=== PATIENT | male | born 1980 | race Caucasian/White ===

== ENCOUNTER 2018-04-12 13:18 | Inpatient (IN) | payer MEDICAID ==
[~2018-04-12] VITALS: Ht 195.6 cm; Wt 74.8 kg
[2018-04-12 17:36] VITALS: BMI 19.6
[2018-04-12 18:43] LABS: ALBUMIN 1.7 g/dL (3.4-5.0); ALKALINE PHOSPHATASE 134 U/L (46-116); ALT (SGPT) 81 U/L (10-68); BILIRUBIN - TOTAL 0.57 mg/dL (0.2-1.3); CALC OSMOLALITY 258 mosm/kg (275-300); CALCIUM 7.4 mg/dL (8.5-10.1); CARBON DIOXIDE 21.2 mmol/L (21.0-32.0); CHLORIDE - SERUM 95 mmol/L (98-107); CREATININE - SERUM 0.9 mg/dL (0.6-1.3); GLUCOSE 91 mg/dL (74-106); POTASSIUM - SERUM 4.5 mmol/L (3.5-5.1); PROTEIN - SERUM 6.3 g/dL (6.4-8.2); SODIUM 130 mmol/L (136-145); UREA NITROGEN 7 mg/dL (7-18); eGFR NON AFRICAN AMERICAN > 90 mL/min (90-120)
[2018-04-12 19:49] LABS: BASOPHILS 0.2 % (0-2); EOSINOPHILS 0.1 % (0-7); HEMATOCRIT 25.4 % (42.0-54.0); HEMOGLOBIN 8.4 g/dL (13.5-17.5); IMMATURE GRANULOCYTES 0.4 % (0-5); LYMPHOCYTES 10.5 % (15-50); MCH 27.6 pg (26.0-34.0); MCHC 33.1 g/dL (31.0-37.0); MCV 83.6 fL (80.0-100.0); MEAN PLATELET VOLUME 9.7 fL (7.4-10.4); MONOCYTES 8.2 % (2-11); NEUTROPHILS 80.6 % (40-80); PLATELET COUNT 466 10x3/uL (130-400); RBC 3.04 10x6/uL (4.20-6.10); RDW 13.3 % (11.5-14.5); WBC 16.1 10x3/uL (4.8-10.8)
[2018-04-12 21:34] VITALS: BP 128/76
--- NOTE | 2018-04-12 21:35 | NUR ---
WATCHING TV QUIELTY. NO DISTRESS NOTED. TEMP 103. TYLENOL 650 MG GIVEN PER ORDERS. IV TO LEONEL INTACT WITHOUT REDNESS OR EDEMA NOTED. NO COMPLAINTS VOICED. CL IN REACH
--- NOTE | 2018-04-12 22:30 | NUR ---
TEMP 101.7. NO DISTRESS NOTED.
--- NOTE | 2018-04-13 00:25 | NUR ---
RESTING IN BED NO S/S OF DISTRESS, RESP. EVEN AND UNLABORED CALL LIGHT IN REACH.
[2018-04-13 01:05] VITALS: BP 110/63
[2018-04-13 04:52] LABS: BASOPHILS 0.1 % (0-2); EOSINOPHILS 0.1 % (0-7); HEMOGLOBIN 7.9 g/dL (13.5-17.5); IMMATURE GRANULOCYTES 0.5 % (0-5); LYMPHOCYTES 12.8 % (15-50); MCH 27.7 pg (26.0-34.0); MCHC 32.9 g/dL (31.0-37.0); MCV 84.2 fL (80.0-100.0); MEAN PLATELET VOLUME 9.9 fL (7.4-10.4); MONOCYTES 9.8 % (2-11); NEUTROPHILS 76.7 % (40-80); PLATELET COUNT 482 10x3/uL (130-400); RBC 2.85 10x6/uL (4.20-6.10); RDW 13.4 % (11.5-14.5)
[2018-04-13 04:56] VITALS: BP 125/74
[2018-04-13 05:04] LABS: CALC OSMOLALITY 257 mosm/kg (275-300); CALCIUM 7.2 mg/dL (8.5-10.1); CARBON DIOXIDE 22.6 mmol/L (21.0-32.0); CHLORIDE - SERUM 96 mmol/L (98-107); GLUCOSE 93 mg/dL (74-106); POTASSIUM - SERUM 4.2 mmol/L (3.5-5.1); SODIUM 129 mmol/L (136-145); UREA NITROGEN 9 mg/dL (7-18); eGFR NON AFRICAN AMERICAN 88 mL/min (90-120)
--- NOTE | 2018-04-13 05:47 | NUR ---
TYLENOL 650 MG GIVEN FOR TEMP 102. NO COMPLAITNS VOICED.
[2018-04-13 10:04] VITALS: BP 119/65
[2018-04-13 13:10] VITALS: BMI 19.5
[2018-04-13 14:49] VITALS: BP 135/78
[2018-04-13 16:12] LABS: % SATURATION 17 % (15-55); IRON 17 ug/dl (35-150); TOTAL IRON BIND CAPACITY 99 ug/dl (260-445); UNSAT IRON BIND CAPACITY 82 ug/dl (150-375)
[2018-04-13 17:36] VITALS: BP 129/69
--- NOTE | 2018-04-13 17:40 | NUR ---
TB TEST DONE ON LEFT FOREARM 1730. TO BE READ 04/15/18 1730 THROUGH 04/16/18 1730.
[2018-04-13 19:00] VITALS: BP 117/70
--- NOTE | 2018-04-13 19:30 | NUR ---
ATTEMPTED IV PLACEMENT TWO STICKS, UNSUCCESSFUL, ANOTHER NURSE ATTEMPTED TO PLACE IV, STUCK PT TWICE UNSUCCESSFULLY, WILL ATTEMPT LATER, DENIES NEEDS, A&O, CALL LIGHT IN REACH, BED LOWEST POSITION, WILL CONTINUE POC
--- NOTE | 2018-04-13 22:40 | NUR ---
22G TO RIGHT FOREARM PLACED ONE STICK, ABX STARTED AND IV FLUIDS ON
[2018-04-14] VITALS: BP 119/71
[2018-04-14 00:31] LABS: APPEARANCE CLEAR (CLEAR); BILIRUBIN NEGATIVE (NEGATIVE); COLOR YELLOW (YELLOW); GLUCOSE NEGATIVE (NEGATIVE); KETONE NEGATIVE (NEGATIVE); NITRITE NEGATIVE (NEGATIVE); PROTEIN NEGATIVE (NEGATIVE); SPECIFIC GRAVITY 1.015 (1.005-1.020); UROBILINOGEN NORMAL (NORMAL)
[2018-04-14 03:00] VITALS: BP 119/74
--- NOTE | 2018-04-14 04:09 | NUR ---
RECEIVED PAIN MED FROM NURSE. NO OTHER NEEDS. NO DISTRESS NOTED. AGREE WITH FIGHT MANAGER'S ASSESSMENT. CONTINUE PLAN OF CARE.
[2018-04-14 08:16] LABS: FOLATE (FOLIC ACID) - SERUM 6.2 ng/mL (>3.0)
--- NOTE | 2018-04-14 10:23 | NUR ---
SCD'S PLACED ON PATIENT. TURNED ON AND FUNCTIONING.
[2018-04-14 10:58] VITALS: BP 104/68; BP 123/69
[2018-04-14 11:42] LABS: BASOPHILS 0.1 % (0-2); EOSINOPHILS 0.1 % (0-7); HEMATOCRIT 21.8 % (42.0-54.0); IMMATURE GRANULOCYTES 0.5 % (0-5); LYMPHOCYTES 12.4 % (15-50); MCH 27.8 pg (26.0-34.0); MCV 84.2 fL (80.0-100.0); MEAN PLATELET VOLUME 9.7 fL (7.4-10.4); MONOCYTES 7.7 % (2-11); NEUTROPHILS 79.2 % (40-80); PLATELET COUNT 445 10x3/uL (130-400); RBC 2.59 10x6/uL (4.20-6.10); RDW 13.7 % (11.5-14.5); WBC 14.2 10x3/uL (4.8-10.8)
[2018-04-14 11:52] LABS: CALC OSMOLALITY 258 mosm/kg (275-300); CARBON DIOXIDE 22.4 mmol/L (21.0-32.0); CHLORIDE - SERUM 97 mmol/L (98-107); CREATININE - SERUM 0.9 mg/dL (0.6-1.3); GLUCOSE 123 mg/dL (74-106); POTASSIUM - SERUM 3.8 mmol/L (3.5-5.1); SODIUM 129 mmol/L (136-145); UREA NITROGEN 10 mg/dL (7-18); eGFR NON AFRICAN AMERICAN > 90 mL/min (90-120)
[2018-04-14 12:04] LABS: HEMOGLOBIN 7.2 g/dL (13.5-17.5)
[2018-04-14 14:18] VITALS: BP 105/61
--- NOTE | 2018-04-14 15:01 | NUR ---
RESTING QUIETLY IN BED. REPORTS PAIN MEDS ARE CAUSING HIM TO GO IN AND OUT. DENIES NEEDS. CONTINUE [facility] PLAN OF CARE.
--- NOTE | 2018-04-14 16:30 | NUR ---
A POS. BLOOD STARTED AFTER PRE-BLOOD VS TAKEN. VS 99.9 ORAL TEMP, 117 HR, 32 RESP, 118/71 BP, 93% ON 2.5 L NC. STAYING WITH PATIENT FOR FIRST 15 MINUTES AND RECORDING SECOND SET OF VS AT 15 MIN AFTER BEGINNING TRANSFUSION.
[2018-04-14 19:00] VITALS: BP 144/77
--- NOTE | 2018-04-14 20:00 | NUR ---
RECEIVED REPORT, ASSUMED CARE, A&O, DENIES NEEDS, TEMP 101.5, TYLENOL GIVEN, SCD MACHINE REPLACED, SCD'S ON, CALL LIGHT IN REACH, BED LOWEST POSITION, WILL CONTINUE POC
[2018-04-15] VITALS: BP 116/69
[2018-04-15 03:00] VITALS: BP 124/76
--- NOTE | 2018-04-15 03:17 | NUR ---
RESTING QUITELY IN BED NO APPARENT DISTRESS CALL LIGHT IN REACH
[2018-04-15 07:11] LABS: CALC OSMOLALITY 261 mosm/kg (275-300); CALCIUM 7.4 mg/dL (8.5-10.1); CHLORIDE - SERUM 98 mmol/L (98-107); CREATININE - SERUM 0.9 mg/dL (0.6-1.3); GLUCOSE 102 mg/dL (74-106); POTASSIUM - SERUM 3.9 mmol/L (3.5-5.1); SODIUM 131 mmol/L (136-145); UREA NITROGEN 9 mg/dL (7-18); eGFR NON AFRICAN AMERICAN > 90 mL/min (90-120)
[2018-04-15 07:31] LABS: LYMPHOCYTES 10.3 % (15-50); MCH 29.5 pg (26.0-34.0); MCHC 34.3 g/dL (31.0-37.0); MEAN PLATELET VOLUME 9.5 fL (7.4-10.4); NEUTROPHILS 83.9 % (40-80); PLATELET COUNT 481 10x3/uL (130-400); RBC 3.08 10x6/uL (4.20-6.10); RDW 14.7 % (11.5-14.5); WBC 14.9 10x3/uL (4.8-10.8)
[2018-04-15 07:33] LABS: HEMATOCRIT 26.5 % (42.0-54.0); HEMOGLOBIN 9.1 g/dL (13.5-17.5)
[2018-04-15 09:27] VITALS: BP 102/60
[2018-04-15 12:35] VITALS: BP 116/67
[2018-04-15 17:02] VITALS: BP 123/72
--- NOTE | 2018-04-15 17:43 | NUR ---
PATIENT'S TB SKIN TEST READ WITH NEGATIVE REACTION AT SITE OF LEFT FOREARM.
[2018-04-15 19:00] VITALS: BP 124/73
--- NOTE | 2018-04-15 19:30 | NUR ---
RECEIVED REPORT, ASSUMED CARE, A&O, CALL LIGHT IN REACH, BED LOWEST POSITION, IV RFA INFUSING, NO S/S OF DISTRESS NOTED, SCD'S ON, DENIES NEEDS, WILL CONTINUE POC
[2018-04-16] VITALS: BP 134/81
[2018-04-16 03:00] VITALS: BP 121/73
--- NOTE | 2018-04-16 04:25 | NUR ---
PT RESTING QUIETLY, EYES CLOSED. RESP EVEN. NO DISTRESS NOTED. AGREE WITH ART PREPARATOR'S ASSESSMENT. CONTINUE PLAN OF CARE.
[2018-04-16 05:15] LABS: BASOPHILS 0.1 % (0-2); EOSINOPHILS 0.1 % (0-7); HEMATOCRIT 23.2 % (42.0-54.0); HEMOGLOBIN 7.7 g/dL (13.5-17.5); IMMATURE GRANULOCYTES 0.5 % (0-5); LYMPHOCYTES 12.2 % (15-50); MCHC 33.2 g/dL (31.0-37.0); MCV 84.4 fL (80.0-100.0); MEAN PLATELET VOLUME 9.6 fL (7.4-10.4); MONOCYTES 8.4 % (2-11); NEUTROPHILS 78.7 % (40-80); PLATELET COUNT 466 10x3/uL (130-400); RBC 2.75 10x6/uL (4.20-6.10); RDW 14.1 % (11.5-14.5); WBC 14.2 10x3/uL (4.8-10.8)
[2018-04-16 05:40] LABS: ALBUMIN 1.3 g/dL (3.4-5.0); ALKALINE PHOSPHATASE 125 U/L (46-116); ALT (SGPT) 60 U/L (10-68); BILIRUBIN - DIRECT 0.11 mg/dL (0.00-0.30); BILIRUBIN - INDIRECT 0.14 mg/dL (0.00-1.00); BILIRUBIN - TOTAL 0.25 mg/dL (0.2-1.3); CALC OSMOLALITY 264 mosm/kg (275-300); CALCIUM 7.3 mg/dL (8.5-10.1); CARBON DIOXIDE 24.8 mmol/L (21.0-32.0); CHLORIDE - SERUM 100 mmol/L (98-107); CREATININE - SERUM 0.8 mg/dL (0.6-1.3); GLUCOSE 92 mg/dL (74-106); MAGNESIUM - SERUM 1.9 mg/dL (1.8-2.4); PHOSPHOROUS 3.1 mg/dL (2.5-4.9); POTASSIUM - SERUM 4.4 mmol/L (3.5-5.1); PROTEIN - SERUM 5.8 g/dL (6.4-8.2); SODIUM 133 mmol/L (136-145); UREA NITROGEN 9 mg/dL (7-18); eGFR NON AFRICAN AMERICAN > 90 mL/min (90-120)
[2018-04-16 08:21] VITALS: BP 119/72
[2018-04-16 12:20] VITALS: BP 112/74
--- NOTE | 2018-04-16 14:14 | MORECARE ---
CASE MANAGEMENT DISCHARGE SUMMARY PATIENT: DEMETRIUS GILLESPIE UNIT: [id number] ADM DATE: 04/12/18 AGE: 38 : 78 SEX: M ROOM/BED: D.2228 AUTHOR: BLU YBARRA PHYSICIAN: REFERRING PHYSICIAN: GOMEZ VIERA MD DATE OF SERVICE: 04/16/18 Discharge Plan Patient Name: DEMETRIUS GILLESPIE [facility] [facility] 1980 Planned Disposition: Home Anticipated Discharge Date: Discharge Date: Expected LOS: Initial Reviewer: [email or web address] Initial Review Date: 04/16/2018 Generated: 04/16/18 3:14 pm Patient Name: DEMETRIUS GILLESPIE Page [id number] at 1414 All edits/amendments must be made on the electronic document DICTATION DATE: 04/16/18 141 RETURNED CASE INSPECTOR: DELORIS 04/16/18 1414 RPT#: [id number] DC DATE: STATUS: ADM IN [facility] [address] [place] [address] END OF REPORT
--- NOTE | 2018-04-16 14:23 | MORECARE ---
CASE MANAGEMENT DISCHARGE SUMMARY PATIENT: DEMETRIUS GILLESIPE UNIT: [id number] ADM DATE: 04/12/18 AGE: 38 : 78 SEX: M ROOM/BED: D.2228 AUTHOR: TATE,DOC PHYSICIAN: REFERRING PHYSICIAN: GOMEZ VIERA MD DATE OF SERVICE: 04/16/18 Discharge Plan Patient Name: DEMETRIUS GILLESPIE Facility: [facility]:[place] : 1980 Planned Disposition: Home Anticipated Discharge Date: Discharge Date: Expected LOS: Initial Reviewer: [email or web address] Initial Review Date: 04/16/2018 Generated: 04/16/18 3:23 pm Comments DCP- Discharge Planning Updated by [email or web address]: Helen Bruce on 04/16/18 1:[address] Patient Name: DEMETRIUS GILLESPIE Admission Status: Urgent Accout number: [id number] Admission Date: 04-12-2018 : 1980 Admission Diagnosis: Attending: GOMEZ VIERA Current LOS: 4 Anticipated DC Date: Planned Disposition: Home Primary Insurance: MEDICAID [place] PENDING Discharge Planning Comments: CM met with patient to complete initial dc planning assessment. CM educated patient on the CM role and verbal consent given by patient to complete assessment. Patient lives alone. At discharge patient plans to return home and feels this is a safe discharge. Discussed possibility of home health and DME needs, declines need for medical equipment or home health at this time. I discussed getting a primary care doctor for follow up in [place] and informed him that he does show Medicaid pending and to follow up. CM will continue to follow and assist with discharge planning/needs. Folder Hand: Helen Bruce DCPIA - Discharge Planning Initial Assessment Updated by [email or web address]: Helen Bruce on 04/16/18 2:16 pm * Is the patient Alert and Oriented? Yes * How many steps to enter\exit or inside your home? 3/0 * PCP None * Pharmacy [facility] in [place] * Preadmission Environment Acute Care Facility * Facility Name [facility] in [place] * ADLs Independent * Equipment None * List name and contact numbers for known caregivers / representatives who currently or will assist patient after discharge: [place] Juan C - mother - [phone] * Verbal permission to speak to the caregivers and representatives has been obtained from the patient. Yes * Community resources currently utilized None * Additional services required to return to the preadmission environment? No * Can the patient safely return to the preadmission environment? Yes * Has this patient been hospitalized within the prior 30 days at any hospital? No Last DP export: 04/16/18 1:14 p Patient Name: DEMETRIUS GILLESPIE Page [id number] at 1423 All edits/amendments must be made on the electronic document DICTATION DATE: 04/16/181422 DELIVERY SUPERVISOR: DELORIS 04/16/18 142 RPT#: [id number] DC DATE: STATUS: ADM IN [facility] [address] [place] [address] END OF REPORT
[2018-04-16 16:00] VITALS: BP 119/63
--- NOTE | 2018-04-16 17:23 | NUR ---
SWIM INSTRUCTOR COMPLETE. NO SIGNS OF DISTRESS NOTED. CL IN REACH
[2018-04-16 20:00] VITALS: BP 114/64
--- NOTE | 2018-04-16 22:29 | NUR ---
THE PATIENT APPEARS COMFORTABLE WITH NO QUESTIONS OR CONCERNS AT THIS TIME. SCDS IN PLACE. PATIENT IS NPO.
[2018-04-17] VITALS: BP 111/72
[2018-04-17 05:00] VITALS: BP 118/68
[2018-04-17 05:14] LABS: HEPATITIS C ANTIBODY 0.2 S/CO RAT (0.0-0.9)
[2018-04-17 06:11] LABS: BASOPHILS 0.2 % (0-2); EOSINOPHILS 0.5 % (0-7); HEMATOCRIT 26.4 % (42.0-54.0); HEMOGLOBIN 8.5 g/dL (13.5-17.5); IMMATURE GRANULOCYTES 0.5 % (0-5); LYMPHOCYTES 12.2 % (15-50); MCH 27.8 pg (26.0-34.0); MCHC 32.2 g/dL (31.0-37.0); MCV 86.3 fL (80.0-100.0); MEAN PLATELET VOLUME 9.7 fL (7.4-10.4); MONOCYTES 10.5 % (2-11); NEUTROPHILS 76.1 % (40-80); PLATELET COUNT 557 10x3/uL (130-400); RBC 3.06 10x6/uL (4.20-6.10); RDW 14.6 % (11.5-14.5); WBC 15.2 10x3/uL (4.8-10.8)
[2018-04-17 06:28] LABS: CALC OSMOLALITY 266 mosm/kg (275-300); CARBON DIOXIDE 26.6 mmol/L (21.0-32.0); CHLORIDE - SERUM 100 mmol/L (98-107); CREATININE - SERUM 0.8 mg/dL (0.6-1.3); GLUCOSE 82 mg/dL (74-106); POTASSIUM - SERUM 4.3 mmol/L (3.5-5.1); SODIUM 135 mmol/L (136-145); UREA NITROGEN 8 mg/dL (7-18); eGFR NON AFRICAN AMERICAN > 90 mL/min (90-120)
[2018-04-17 08:27] VITALS: BP 116/60
[2018-04-17 11:20] LABS: OSMOLALITY - URINE 330 (())
[2018-04-17 12:04] VITALS: BP 109/70
--- NOTE | 2018-04-17 12:29 | NUR ---
NUTRITION F/U PT CURRENTLY NPO FOR PROCEDURE. WILL PROVIDE DIET WHEN RESUMED. MONITOR PT PROGRESS, PO INTAKE. RD FOLLOWING
--- NOTE | 2018-04-17 15:43 | NUR ---
PATIENT TAKEN BY WHEELCHAIR TO PRIVATE CAR, CAREGIVER TAKING PATIENT HOME
--- NOTE | 2018-04-17 15:45 | NUR ---
DISREGUARD PREVIOUS NOTE, WRONG PATIENT
--- NOTE | 2018-04-17 16:38 | NUR ---
1404 UNABLE TO SEDATE WITH MODERATED SEDATION. APOORVA HARTMAN WITH ANESTHESIA IN ROOM TO COMPLETE WITH TIVA.
[2018-04-17 20:00] VITALS: BP 132/79
[2018-04-18] VITALS (7 sets, daily range): BP systolic 114–133; BP diastolic 60–82; Ht 195.6 cm; Wt 74.8 kg
[2018-04-18 06:07] LABS: BASOPHILS 0.1 % (0-2); EOSINOPHILS 0.5 % (0-7); HEMATOCRIT 24.2 % (42.0-54.0); HEMOGLOBIN 7.8 g/dL (13.5-17.5); IMMATURE GRANULOCYTES 0.3 % (0-5); LYMPHOCYTES 9.8 % (15-50); MCH 27.8 pg (26.0-34.0); MCHC 32.2 g/dL (31.0-37.0); MCV 86.1 fL (80.0-100.0); MEAN PLATELET VOLUME 9.6 fL (7.4-10.4); MONOCYTES 10.7 % (2-11); NEUTROPHILS 78.6 % (40-80); PLATELET COUNT 544 10x3/uL (130-400); RBC 2.81 10x6/uL (4.20-6.10); RDW 14.8 % (11.5-14.5); WBC 14.4 10x3/uL (4.8-10.8)
[2018-04-18 06:27] LABS: CALC OSMOLALITY 262 mosm/kg (275-300); CALCIUM 7.7 mg/dL (8.5-10.1); CARBON DIOXIDE 25.1 mmol/L (21.0-32.0); CHLORIDE - SERUM 98 mmol/L (98-107); CREATININE - SERUM 0.8 mg/dL (0.6-1.3); GLUCOSE 89 mg/dL (74-106); POTASSIUM - SERUM 4.4 mmol/L (3.5-5.1); SODIUM 133 mmol/L (136-145); UREA NITROGEN 8 mg/dL (7-18); eGFR NON AFRICAN AMERICAN > 90 mL/min (90-120)
--- NOTE | 2018-04-18 13:12 | NUR ---
NUTRITION F/U PT REMAINS IN ISOLATION. TOLERATING REG DIET. ENSURE ADDED TO MEALS. RD FOLLOWING
[2018-04-18 15:22] LABS: FUNGUS STAIN Final report (())
[2018-04-18 15:22] LABS: FUNGUS STAIN Final report (())
[2018-04-18 15:22] LABS: FUNGUS STAIN Final report (())
[2018-04-18 15:22] LABS: FUNGUS STAIN Final report (())
[2018-04-18 16:11] LABS: ACID FAST SMEAR Positive (()); AFB SPECIMEN PROCESSING Concentration (())
[2018-04-18 16:11] LABS: ACID FAST SMEAR Positive (()); AFB SPECIMEN PROCESSING Concentration (())
[2018-04-18 16:11] LABS: ACID FAST SMEAR Positive (()); AFB SPECIMEN PROCESSING Concentration (())
--- NOTE | 2018-04-18 20:25 | NUR ---
REC'D. WITH dROPLET iSOLATION PRECAUTIONS IN PROGRESS.DENIES PAIN AT PRESENT TIME. WILL CONTINUE TO MONITOR FOR ANY CHGES.IN RESP; STATUS AND FOLLOW CURRENT PLAN OF CARE.
[2018-04-19] VITALS (9 sets, daily range): BP systolic 100–139; BP diastolic 68–81
--- NOTE | 2018-04-19 03:45 | NUR ---
RESTING QUITELY IN BED NO APPARENT DISTRESS, CALL LIGHT IN REACH
[2018-04-19 05:12] LABS: BASOPHILS 0.2 % (0-2); EOSINOPHILS 0.6 % (0-7); HEMATOCRIT 24.8 % (42.0-54.0); HEMOGLOBIN 7.9 g/dL (13.5-17.5); IMMATURE GRANULOCYTES 0.3 % (0-5); MCH 27.4 pg (26.0-34.0); MCHC 31.9 g/dL (31.0-37.0); MCV 86.1 fL (80.0-100.0); MEAN PLATELET VOLUME 9.1 fL (7.4-10.4); NEUTROPHILS 73.9 % (40-80); PLATELET COUNT 524 10x3/uL (130-400); RBC 2.88 10x6/uL (4.20-6.10); RDW 14.7 % (11.5-14.5)
[2018-04-19 05:21] LABS: INR 1.33 (0.85-1.17); PROTIME 15.9 SECONDS (11.6-15.0)
[2018-04-19 05:44] LABS: ALBUMIN 1.4 g/dL (3.4-5.0); ALKALINE PHOSPHATASE 100 U/L (46-116); ALT (SGPT) 28 U/L (10-68); BILIRUBIN - TOTAL 0.46 mg/dL (0.2-1.3); CALC OSMOLALITY 271 mosm/kg (275-300); CALCIUM 7.6 mg/dL (8.5-10.1); CARBON DIOXIDE 24.7 mmol/L (21.0-32.0); CHLORIDE - SERUM 103 mmol/L (98-107); CREATININE - SERUM 0.9 mg/dL (0.6-1.3); GLUCOSE 93 mg/dL (74-106); POTASSIUM - SERUM 4.4 mmol/L (3.5-5.1); PROTEIN - SERUM 5.9 g/dL (6.4-8.2); SODIUM 137 mmol/L (136-145); UREA NITROGEN 7 mg/dL (7-18); eGFR NON AFRICAN AMERICAN > 90 mL/min (90-120)
[2018-04-19 12:39] LABS: LEGIONELLA ANTIGEN - URINE Negative (Negative)
[2018-04-19 12:39] LABS: HISTOPLASMA GAL MANNAN AG SER <0.5 (<0.5 ng/mL)
[2018-04-19 13:13] LABS: CRYPTOCOCCUS AG - SERUM Negative (Negative)
[2018-04-19 15:20] LABS: ACID FAST SMEAR Negative (()); AFB SPECIMEN PROCESSING Concentration (())
[2018-04-19 19:35] LABS: BILIRUBIN - DIRECT 0.15 mg/dL (0.00-0.30)
[2018-04-19 19:59] LABS: BILIRUBIN - INDIRECT 0.46 mg/dL (0.00-1.00)
[2018-04-20] VITALS (7 sets, daily range): BP systolic 117–127; BP diastolic 71–84
[2018-04-20 05:46] LABS: MCH 29.5 pg (26.0-34.0); MCHC 33.4 g/dL (31.0-37.0); NEUTROPHILS 76.8 % (40-80); PLATELET COUNT 494 10x3/uL (130-400); RBC 4.03 10x6/uL (4.20-6.10); RDW 15.8 % (11.5-14.5); WBC 13.4 10x3/uL (4.8-10.8)
[2018-04-20 05:47] LABS: HEMATOCRIT 35.6 % (42.0-54.0); HEMOGLOBIN 11.9 g/dL (13.5-17.5); MCV 88.3 fL (80.0-100.0)
[2018-04-20 05:52] LABS: ALBUMIN 1.5 g/dL (3.4-5.0); ALKALINE PHOSPHATASE 129 U/L (46-116); ALT (SGPT) 33 U/L (10-68); BILIRUBIN - TOTAL 0.45 mg/dL (0.2-1.3); CALCIUM 7.5 mg/dL (8.5-10.1); CARBON DIOXIDE 23.8 mmol/L (21.0-32.0); CHLORIDE - SERUM 101 mmol/L (98-107); CREATININE - SERUM 0.9 mg/dL (0.6-1.3); GLUCOSE 91 mg/dL (74-106); POTASSIUM - SERUM 4.9 mmol/L (3.5-5.1); PROTEIN - SERUM 6.1 g/dL (6.4-8.2); SODIUM 135 mmol/L (136-145); eGFR NON AFRICAN AMERICAN > 90 mL/min (90-120)
[2018-04-20 05:53] LABS: CALC OSMOLALITY 268 mosm/kg (275-300); UREA NITROGEN 9 mg/dL (7-18)
[2018-04-20 14:17] LABS: FUNGUS STAIN Final report (())
[2018-04-21 01:32] VITALS: BP 117/73
[2018-04-21 05:14] VITALS: BP 118/82
[2018-04-21 07:28] LABS: BASOPHILS 0.3 % (0-2); EOSINOPHILS 0.8 % (0-7); HEMATOCRIT 33.6 % (42.0-54.0); HEMOGLOBIN 11.2 g/dL (13.5-17.5); IMMATURE GRANULOCYTES 0.4 % (0-5); LYMPHOCYTES 10.8 % (15-50); MCH 28.9 pg (26.0-34.0); MCHC 33.3 g/dL (31.0-37.0); MCV 86.8 fL (80.0-100.0); MEAN PLATELET VOLUME 9.2 fL (7.4-10.4); MONOCYTES 11.7 % (2-11); PLATELET COUNT 491 10x3/uL (130-400); RBC 3.87 10x6/uL (4.20-6.10); WBC 14.8 10x3/uL (4.8-10.8)
[2018-04-21 07:57] LABS: ALBUMIN 1.6 g/dL (3.4-5.0); ALKALINE PHOSPHATASE 103 U/L (46-116); ALT (SGPT) 26 U/L (10-68); BILIRUBIN - TOTAL 0.37 mg/dL (0.2-1.3); CALCIUM 7.8 mg/dL (8.5-10.1); CARBON DIOXIDE 23.4 mmol/L (21.0-32.0); CHLORIDE - SERUM 101 mmol/L (98-107); CREATININE - SERUM 0.7 mg/dL (0.6-1.3); GLUCOSE 91 mg/dL (74-106); PROTEIN - SERUM 6.5 g/dL (6.4-8.2); SODIUM 133 mmol/L (136-145); eGFR NON AFRICAN AMERICAN > 90 mL/min (90-120)
[2018-04-21 08:02] LABS: CALC OSMOLALITY 263 mosm/kg (275-300); POTASSIUM - SERUM 4.1 mmol/L (3.5-5.1); UREA NITROGEN 6 mg/dL (7-18)
[2018-04-21 09:00] VITALS: BP 128/81
[2018-04-21 13:40] VITALS: BP 115/74
[2018-04-21 18:20] VITALS: BP 116/72
--- NOTE | 2018-04-21 19:24 | NUR ---
SITTING UP RIGHT IN BED, EVEN UNLABORED BREATHING, C/O STUFFY NOSE, ON ROOM AIR, IV IN RIGHT FOREARM, PATENT, INFUSING FLUIDS WITH VANC. DENIES ANY NEEDS OR DISCOMFORTS, BED LOWERED AND LOCKED, CALL LIGHT WITHIN REACH. CPOC
[2018-04-21 20:06] LABS: ACID FAST SMEAR Positive (()); AFB SPECIMEN PROCESSING Concentration (())
--- NOTE | 2018-04-21 20:30 | NUR ---
ALERT AND ORIENTED X4. AMBULATORY. RESP IRREG. O2 @ 2 1/2L/HFC. BBS CTA. PROD COUGH WITH YELLOW SPUTUM. PT IN ISOLATION FOR TB. REPORTS LOOSE BMS AND TAKING MEDS FOR THIS. NO EDEMA NOTED. NS @ 50 ML/HR INFUSING IN RT FOREARM WITHOUT DIFF. REPORTS PAIN IN CHEST/BACK 6 BUT DENIES NEED FOR PAIN MED. NO DISTRESS. SR ELEVATED X2. CL IN REACH.
[2018-04-21 21:40] VITALS: BP 128/73
--- NOTE | 2018-04-21 22:00 | NUR ---
IV HURTING IN RT FOREARM. SALINE LOCK X2 REMOVED. IV RESTARTED IN LT FOREARM AFTER ATTEMPT X1. PT CLAIRE WELL.
[2018-04-22 01:08] VITALS: BP 111/76
[2018-04-22 04:23] VITALS: BP 124/80
--- NOTE | 2018-04-22 04:44 | NUR ---
HASIRINA SLEPT MUCH TONIGHT. STAFF IN ROOM FREQUENTLY FOR MED ADMINISTRATION. PT IN GOOD SPIRITS. NO DISTRESS.
[2018-04-22 06:47] LABS: BASOPHILS 0.3 % (0-2); EOSINOPHILS 1.5 % (0-7); HEMOGLOBIN 9.8 g/dL (13.5-17.5); IMMATURE GRANULOCYTES 0.4 % (0-5); LYMPHOCYTES 14.8 % (15-50); MCH 28.7 pg (26.0-34.0); MCHC 32.7 g/dL (31.0-37.0); MCV 87.7 fL (80.0-100.0); MEAN PLATELET VOLUME 9.5 fL (7.4-10.4); MONOCYTES 14.5 % (2-11); NEUTROPHILS 68.5 % (40-80); PLATELET COUNT 424 10x3/uL (130-400); RBC 3.42 10x6/uL (4.20-6.10); RDW 15.1 % (11.5-14.5); WBC 11.7 10x3/uL (4.8-10.8)
[2018-04-22 07:05] LABS: ALBUMIN 1.5 g/dL (3.4-5.0); ALKALINE PHOSPHATASE 87 U/L (46-116); ALT (SGPT) 23 U/L (10-68); BILIRUBIN - TOTAL 0.21 mg/dL (0.2-1.3); CALC OSMOLALITY 268 mosm/kg (275-300); CALCIUM 7.7 mg/dL (8.5-10.1); CARBON DIOXIDE 22.4 mmol/L (21.0-32.0); CHLORIDE - SERUM 103 mmol/L (98-107); CREATININE - SERUM 0.8 mg/dL (0.6-1.3); GLUCOSE 80 mg/dL (74-106); POTASSIUM - SERUM 4.2 mmol/L (3.5-5.1); SODIUM 136 mmol/L (136-145); UREA NITROGEN 7 mg/dL (7-18); eGFR NON AFRICAN AMERICAN > 90 mL/min (90-120)
--- NOTE | 2018-04-22 09:16 | NUR ---
AWAKE AND ALERT, ORIENTED X4, O2 PRESENT VIA HIGHFLOW AT 2LPM, PAIN LEVEL 6/10 BUT DENIES PAIN MEDICATION AT THIS TIME, PRODUCTIVE COUGH, DENIES ANY CURRENT NEEDS OR DISCOMFORTS, BED LOWERED AND LOCKED, CALL LIGHT WITHIN REACH. CPOC
[2018-04-22 09:40] VITALS: BP 138/77
--- NOTE | 2018-04-22 11:34 | NUR ---
AWAKE AND ALERT, UP TO BATHROOM, BY SELF, 02 STILL ON AT 2.5 HIGH FLOW NC, PROVIDED HYDRATION WITH WATER AND POPSICLE, SCD'S ON AND IN OPERATION, DENIES ANY OTHER NEEDS OR DISCOMFORTS, BED LOWERED AND LOCKED. CALL LIGHT WITHIN REACH. CPOC
--- NOTE | 2018-04-22 13:00 | NUR ---
EYES CLOSED, EVEN UNLABORED BREATHING, EASILY AROUSED BY VOICE, 02 PRESENT AT 2.5 HIGH FLOW NC, IV INFUSING VANC AND FLUIDS TO LEFT FOREARM, DENIES ANY CURRENT NEEDS OR DISCOMFORTS, BED LOWERED AND LOCKED, CALL LIGHT WITHIN REACH. CPOC
[2018-04-22 14:15] VITALS: BP 136/83
[2018-04-22 18:48] VITALS: BP 135/92
--- NOTE | 2018-04-22 19:09 | NUR ---
AWAKE AND ALERT, HIGH FLOW 2.5 VIA NC, EVEN UNLABORED BREATHING, SCD'S ON, IV IN LEFT FOREARM, PATENT, DENIES ANY CURRENT NEEDS OR DISCOMFORTS, BED LOWERED AND LOCKED, CALL LIGHT WITHIN REACH. CPOC
--- NOTE | 2018-04-22 19:40 | NUR ---
PT RESTING QUIETLY.
[2018-04-22 20:00] VITALS: BP 139/92
--- NOTE | 2018-04-22 20:00 | NUR ---
ALERT AND ORIENTED X4. RESP EVEN AND NONLABORED. BBS CTA. PROD COUGH WITH YELLOW SPUTUM. O2 @ 2.5L/HFC. DENIES PAIN. NS @ 50 ML/HR INFUSING IN LT FOREARM WITHOUT DIFF. AMBULATORY. STATES HIS BOWEL MOVEMENTS ARE LESS FREQUENT. NO DISTRESS. ISOLATION PRECAUTIONS IN USE FOR TB. SR ELEVATED X2. CL IN REACH.
[2018-04-23 04:00] VITALS: BP 116/79
[2018-04-23 04:17] LABS: BASOPHILS 0.5 % (0-2); EOSINOPHILS 1.3 % (0-7); HEMATOCRIT 29.9 % (42.0-54.0); HEMOGLOBIN 9.8 g/dL (13.5-17.5); IMMATURE GRANULOCYTES 0.3 % (0-5); LYMPHOCYTES 14.4 % (15-50); MCH 28.7 pg (26.0-34.0); MCHC 32.8 g/dL (31.0-37.0); MCV 87.4 fL (80.0-100.0); MEAN PLATELET VOLUME 9.4 fL (7.4-10.4); MONOCYTES 12.5 % (2-11); PLATELET COUNT 469 10x3/uL (130-400); RBC 3.42 10x6/uL (4.20-6.10); RDW 14.6 % (11.5-14.5); WBC 10.8 10x3/uL (4.8-10.8)
[2018-04-23 04:30] LABS: ALBUMIN 1.5 g/dL (3.4-5.0); ALKALINE PHOSPHATASE 85 U/L (46-116); BILIRUBIN - TOTAL 0.25 mg/dL (0.2-1.3); CALC OSMOLALITY 266 mosm/kg (275-300); CALCIUM 7.7 mg/dL (8.5-10.1); CARBON DIOXIDE 21.2 mmol/L (21.0-32.0); CHLORIDE - SERUM 102 mmol/L (98-107); CREATININE - SERUM 0.8 mg/dL (0.6-1.3); GLUCOSE 115 mg/dL (74-106); PROTEIN - SERUM 6.2 g/dL (6.4-8.2); SODIUM 134 mmol/L (136-145); UREA NITROGEN 7 mg/dL (7-18); eGFR NON AFRICAN AMERICAN > 90 mL/min (90-120)
[2018-04-23 04:31] LABS: ALT (SGPT) 15 U/L (10-68)
--- NOTE | 2018-04-23 07:18 | NUR ---
REC'D IN WALKING ROUND AWAKE AND ALERT. RESP EVEN AND UNLABORED WITH NO DISTRESS NOTED. CAN EXPRESS NEEDS AND WANTS WITH NO C/O NOTED OR VOICED. UP AB LINCOLN. ASSESSMENT COMPLETED. C/L IN REACH AT BEDSIDE.
[2018-04-23 08:44] VITALS: BP 129/83
[2018-04-23 13:13] LABS: FUNGUS STAIN Final report (())
[2018-04-23 13:16] VITALS: BP 124/85
[2018-04-23 17:29] VITALS: BP 131/87
--- NOTE | 2018-04-23 19:45 | NUR ---
PT RESTING IN BED. ALERT AND ORIENTED. NO SIGNS OF DISTRESS. BREATHING EVEN AND UNLABORED. PT STATES NO PROBLEMS AT THIS TIME. IV SITE RT HAND DRESSING CLEAN DRY AND INTACT. NO SIGNS OF INFECTION. SKIN CLEAN DRY AND INTACT. 2.5LO2 NASAL CANNULA. NO LOWER LEG SWELLING PRESENT. WILL CONTINUE PLAN OF CARE. CALL LIGHT IN REACH. BED LOWERED AND LOCKED. BED RAILS UP X2.
[2018-04-23 20:00] VITALS: BP 121/74
[2018-04-24 04:00] VITALS: BP 131/89
[2018-04-24 04:43] LABS: BASOPHILS 0.4 % (0-2); EOSINOPHILS 0.9 % (0-7); HEMATOCRIT 30.5 % (42.0-54.0); IMMATURE GRANULOCYTES 0.2 % (0-5); MCH 28.6 pg (26.0-34.0); MCHC 32.8 g/dL (31.0-37.0); MCV 87.1 fL (80.0-100.0); MEAN PLATELET VOLUME 9.1 fL (7.4-10.4); MONOCYTES 12.6 % (2-11); NEUTROPHILS 68.9 % (40-80); PLATELET COUNT 482 10x3/uL (130-400); RDW 14.7 % (11.5-14.5); WBC 9.5 10x3/uL (4.8-10.8)
[2018-04-24 05:11] LABS: CALC OSMOLALITY 266 mosm/kg (275-300); CALCIUM 7.9 mg/dL (8.5-10.1); CARBON DIOXIDE 22.6 mmol/L (21.0-32.0); CHLORIDE - SERUM 102 mmol/L (98-107); CREATININE - SERUM 0.8 mg/dL (0.6-1.3); GLUCOSE 88 mg/dL (74-106); POTASSIUM - SERUM 4.2 mmol/L (3.5-5.1); SODIUM 135 mmol/L (136-145); UREA NITROGEN 6 mg/dL (7-18); eGFR NON AFRICAN AMERICAN > 90 mL/min (90-120)
--- NOTE | 2018-04-24 05:43 | NUR ---
PT LYING IN BED RESTING, NO SIGNS OF DISTRESS. DENIES NEEDS. CL IN REACH, WILL CONTINUE TO MONITOR
--- NOTE | 2018-04-24 07:30 | NUR ---
REC'D IN WALKING ROUND AWAKE AND ALERT. RESP EVEN AND UNLABORD WITH NO DISTRESS NOTED. HAS O2 IN USE VIA NC. DENIES ANY PAIN OR DISCOMFORT AT THIS TIME. CAN MAKE NEED AND WANTS KNOWN WITH NONE NOTE OR VOICED. ASSESSMENT COMPLETED. C/L IN REACH AT BEDSIDE.
[2018-04-24 09:23] VITALS: BP 129/88
[2018-04-24 12:14] LABS: FUNGUS CULTURE RESULT 1 Candida albicans (()); FUNGUS MYCOLOGY CULTURE Preliminary report (())
[2018-04-24 12:14] LABS: FUNGUS MYCOLOGY CULTURE Preliminary report (())
[2018-04-24 12:14] LABS: FUNGUS CULTURE RESULT 1 Candida albicans (()); FUNGUS MYCOLOGY CULTURE Preliminary report (()); FUNGUS STAIN RESULT 1 Yeast observed (())
[2018-04-24 12:14] LABS: FUNGUS CULTURE RESULT 1 Candida albicans (()); FUNGUS MYCOLOGY CULTURE Preliminary report (())
--- NOTE | 2018-04-24 12:18 | NUR ---
NUTRITION F/U CHART REVIEWED, PT REMAINS IN ISOLATION. 50 TO 75% INTAKE RECENT MEALS PLUS ENSURE TID. WILL CONTINUE TO PROVIDE DIET, ENSURE. MONITOR PT PROGRESS. RD FOLLOWING
--- NOTE | 2018-04-24 13:29 | NUR ---
AUTOMOTIVE FUEL INJECTION SERVICER NOTES - PT ALERT X 4. PT AMBULATES IN ROOM. IV TO RIGHT HAND, PATENT DRESSING CLEAN DRY AND INTACT. BREATH SOUNDS CLEAR, 2L O2 PER NC. BED LOW, CALL LIGHT IN REACH. NO OTHER NEEDS AT THIS TIME.
[2018-04-24 14:21] VITALS: BP 129/85
[2018-04-24 17:18] VITALS: BP 125/86
[2018-04-24 18:42] LABS: PROTEIN - BODY FLUID 4.3 G/DL
--- NOTE | 2018-04-24 19:31 | NUR ---
MEDICATED KAYR REDMOND FOR C/O PAIN RATING 7/10 ON PAIN SCALE FOR LEFT SIDE PAIN. C/L IN REACH AT BEDSIDE.
--- NOTE | 2018-04-24 19:45 | NUR ---
PT RESTING IN BED. ALERT AND ORIENTED. NO SIGNS OF DISTRESS. BREATHING EVEN AND UNLABORED. IV SITE RT HAND IV DRESSING CLEAN DRY AND ITNACT. NO SIGNS OF INFECTION. SKIN CLEAN DRY AND INTACT. 2.5 LO2 NASAL CANNULA. BOWEL SOUNDS ACITVE. NO LOWER LEG SWELLING PRESENT. SCDS ON. WILL CONTINUE PLAN OF CARE. CALL LIGHT IN REACH. BED LOWERED AND LOCKED. BED RAILS UP X1.
[2018-04-24 20:00] VITALS: BP 124/76
[2018-04-24 20:46] LABS: EOS BF 2 %; MACROPHAGES BF 7 %; MESOTHELIALS BF 2 %; NEUT - BF 11 %
[2018-04-25] VITALS: BP 109/64
[2018-04-25 04:00] VITALS: BP 115/80
[2018-04-25 05:11] LABS: BASOPHILS 0.5 % (0-2); EOSINOPHILS 1.3 % (0-7); HEMATOCRIT 32.1 % (42.0-54.0); HEMOGLOBIN 10.3 g/dL (13.5-17.5); IMMATURE GRANULOCYTES 0.3 % (0-5); LYMPHOCYTES 20.2 % (15-50); MCH 28.1 pg (26.0-34.0); MCHC 32.1 g/dL (31.0-37.0); MCV 87.7 fL (80.0-100.0); MEAN PLATELET VOLUME 9.1 fL (7.4-10.4); MONOCYTES 15.7 % (2-11); PLATELET COUNT 485 10x3/uL (130-400); RBC 3.66 10x6/uL (4.20-6.10); RDW 14.7 % (11.5-14.5); WBC 7.8 10x3/uL (4.8-10.8)
[2018-04-25 05:16] LABS: CALC OSMOLALITY 267 mosm/kg (275-300); CALCIUM 7.7 mg/dL (8.5-10.1); CARBON DIOXIDE 26.2 mmol/L (21.0-32.0); CHLORIDE - SERUM 104 mmol/L (98-107); CREATININE - SERUM 0.7 mg/dL (0.6-1.3); GLUCOSE 71 mg/dL (74-106); POTASSIUM - SERUM 4.4 mmol/L (3.5-5.1); SODIUM 136 mmol/L (136-145); UREA NITROGEN 7 mg/dL (7-18); eGFR NON AFRICAN AMERICAN > 90 mL/min (90-120)
--- NOTE | 2018-04-25 05:38 | NUR ---
PT RESTING IN BED W/O DISTRESS. DENIES NEEDS. CL IN REACH, WILL CONTINUE TO MONITOR
--- NOTE | 2018-04-25 07:30 | NUR ---
PATIENT IN BED WITH NO COMPLAINTS OR SIGNS OF DISTRESS. IV INTACT. UNDERLAY STITCHER AT BEDSIDE. CALL LIGHT WITHIN REACH.
--- NOTE | 2018-04-25 07:30 | NUR ---
REC'D IN WALKING ROUND AWAKE AND ALERT. RESP EVEN AND UNLABORED WITH NO DISTRESS NOTED. CAN EXPRESS NEEDS AND WANTS NO C/O NOTE OR VOICED. ASSESSMENT COMPLETED. C/L IN REACH AT BEDSIDE.
[2018-04-25 08:00] VITALS: BP 113/78
[2018-04-25 10:21] LABS: FUNGUS MYCOLOGY CULTURE Preliminary report (())
[2018-04-25 12:41] LABS: APPEARANCE CLEAR (CLEAR); BACTERIA FEW /hpf (NONE SEEN); BILIRUBIN NEGATIVE (NEGATIVE); COLOR YELLOW (YELLOW); EPITHELIAL CELLS RARE /hpf (0-5); GLUCOSE NEGATIVE (NEGATIVE); KETONE NEGATIVE (NEGATIVE); MUCUS <1+ /lpf (NONE SEEN); NITRITE NEGATIVE (NEGATIVE); PROTEIN NEGATIVE (NEGATIVE); UROBILINOGEN NORMAL (NORMAL); WHITE CELLS - URINE OCC /hpf (0-5)
[2018-04-25 13:25] VITALS: BP 112/73
--- NOTE | 2018-04-25 15:21 | NUR ---
MEDCIATED WITH NORCO FOR C/O PAIN RATING 8/10. C/L IN REACH AT BEDSIDE.
[2018-04-25 16:30] VITALS: BP 118/75
--- NOTE | 2018-04-25 19:45 | NUR ---
PT RESTING IN BED. ALERT AND ORIENTED. NO SIGNS OF DISTRESS. BREATHING EVEN AND UNLABORED. PT STATES NO PROBLEMS AT THIS TIME. IV SITE RT HAND DRESSING CLEAN DRY AND INTACT. NO SIGNS OF INFECTION. SKIN CLEAN DRY AND INTACT. BOWEL SOUNDS ACTIVE. NO LOWER LEG SWELLING PRESENT. DRESSING LT BACK CLEAN DRY AND INTACT. WILL CONTINUE PLAN OF CARE. CALL LIGHT IN REACH. BED LOWERED AND LOCKED. BED RAILS UP X1.
[2018-04-25 20:00] VITALS: BP 115/80
--- NOTE | 2018-04-25 20:46 | NUR ---
RESTING IN BED WATCHING TV DENIES NEEDS SR UP X2 CALL LIGHT WITHIN REACH.
[2018-04-26 03:34] VITALS: BP 120/80
[2018-04-26 06:13] LABS: BASOPHILS 0.6 % (0-2); EOSINOPHILS 2.8 % (0-7); HEMOGLOBIN 10.5 g/dL (13.5-17.5); IMMATURE GRANULOCYTES 0.3 % (0-5); LYMPHOCYTES 18.7 % (15-50); MCH 28.8 pg (26.0-34.0); MCHC 32.8 g/dL (31.0-37.0); MCV 87.7 fL (80.0-100.0); MEAN PLATELET VOLUME 8.8 fL (7.4-10.4); MONOCYTES 15.2 % (2-11); NEUTROPHILS 62.4 % (40-80); PLATELET COUNT 498 10x3/uL (130-400); RBC 3.65 10x6/uL (4.20-6.10); RDW 14.5 % (11.5-14.5); WBC 8.6 10x3/uL (4.8-10.8)
[2018-04-26 06:30] LABS: CALC OSMOLALITY 268 mosm/kg (275-300); CALCIUM 8.3 mg/dL (8.5-10.1); CARBON DIOXIDE 22.6 mmol/L (21.0-32.0); CHLORIDE - SERUM 103 mmol/L (98-107); CREATININE - SERUM 0.8 mg/dL (0.6-1.3); GLUCOSE 97 mg/dL (74-106); POTASSIUM - SERUM 4.5 mmol/L (3.5-5.1); SODIUM 135 mmol/L (136-145); eGFR NON AFRICAN AMERICAN > 90 mL/min (90-120)
[2018-04-26 06:31] LABS: UREA NITROGEN 10 mg/dL (7-18)
--- NOTE | 2018-04-26 07:54 | NUR ---
AWAKE AND ALERT. ORIENTED X3. NO C/O AT THIS TIME. LUNGS ARE CLEAR BILATERALLY BUT DIMINISHED ON LEFT. REPORTS OCCASSIONAL DRY COUGH. SKIN IS INTACT WITHOUT REDNESS. IV TO RIGHT HAND IS PATENT WITHOUT REDNESS AT INSERTION SITE. DENIES NEEDS.
[2018-04-26 09:04] VITALS: BP 123/77
--- NOTE | 2018-04-26 10:40 | NUR ---
TOOK ALL OF AM MEDS. ATE ALL OF BREAKFAST. DENIES NEEDS.
--- NOTE | 2018-04-26 13:23 | NUR ---
LUNCH SERVED IN ROOM UP TO BR PER SELF. DENIES NEEDS.
[2018-04-26 13:33] VITALS: BP 123/77
--- NOTE | 2018-04-26 14:08 | MORECARE ---
CASE MANAGEMENT DISCHARGE SUMMARY PATIENT: DEMETRIUS GILLESPIE UNIT: [id number] ADM DATE: 04/12/18 AGE: 38 : 78 SEX: M ROOM/BED: D.2201 AUTHOR: TATE,DOC PHYSICIAN: REFERRING PHYSICIAN: GOMEZ VIERA MD DATE OF SERVICE: 04/26/18 Discharge Plan Patient Name: DEMETRIUS GILLESPIE Facility: [facility]:[place] : 1980 Planned Disposition: Home Anticipated Discharge Date: Discharge Date: Expected LOS: Initial Reviewer: [email or web address] Initial Review Date: 04/16/2018 Generated: 04/26/18 3:07 pm Comments DCP- Discharge Planning Updated by [email or web address]: Birdie Piper on 04/26/18 1:[address] PATIENT DOES NOT QUALIFY/NEED HOME O2 POX WAS 96% ON ROOM AIR AND DURING EXERTION 94% DCP- Discharge Planning Updated by [email or web address]: Helen rBuce on 04/16/18 1:[address] Patient Name: DEMETRIUS GILLESPIE Admission Status: Urgent Accout number: [id number] Admission Date: 04-12-2018 : 1980 Admission Diagnosis: Attending: GOMEZ VIERA Current LOS: 4 Anticipated DC Date: Planned Disposition: Home Primary Insurance: MEDICAID [place] PENDING Discharge Planning Comments: CM met with patient to complete initial dc planning assessment. CM educated patient on the CM role and verbal consent given by patient to complete assessment. Patient lives alone. At discharge patient plans to return home and feels this is a safe discharge. Discussed possibility of home health and DME needs, declines need for medical equipment or home health at this time. I discussed getting a primary care doctor for follow up in [place] and informed him that he does show Medicaid pending and to follow up. CM will continue to follow and assist with discharge planning/needs. Warehouse Incentive Selector: Helen Bruce DCPIA - Discharge Planning Initial Assessment Updated by [email or web address]: Helen Bruce on 04/16/18 2:16 pm * Is the patient Alert and Oriented? Yes * How many steps to enter\exit or inside your home? 3/0 * PCP None * Pharmacy [facility] in [place] * Preadmission Environment Acute Care Facility * Facility Name [facility] in [place] * ADLs Independent * Equipment None * List name and contact numbers for known caregivers / representatives who currently or will assist patient after discharge: [place] Irizarry - mother - [phone] * Verbal permission to speak to the caregivers and representatives has been obtained from the patient. Yes * Community resources currently utilized None * Additional services required to return to the preadmission environment? No * Can the patient safely return to the preadmission environment? Yes * Has this patient been hospitalized within the prior 30 days at any hospital? No Last DP export: 04/16/18 1:23 p Patient Name: DEMETRIUS GILLESPIE Page [id number] at 1408 All edits/amendments must be made on the electronic document DICTATION DATE: 04/26/181406 SENIOR COUNSEL: DELORIS 04/26/181406 RPT#: [id number] DC DATE: STATUS: ADM IN [facility] [address] [place] [address] END OF REPORT
[2018-04-26 14:19] LABS: FUNGUS CULTURE RESULT 1 Candida albicans (()); FUNGUS MYCOLOGY CULTURE Preliminary report (())
[2018-04-26 16:13] LABS: ACID FAST SMEAR Negative (()); AFB SPECIMEN PROCESSING Not Indicated (())
[2018-04-26 20:00] VITALS: BP 119/77
[2018-04-27] VITALS: BP 116/71
--- NOTE | 2018-04-27 03:00 | NUR ---
I have reviewed this patient and I concur with the Shift Assessment completed by the Licensed Practical Nurse today this shift.
[2018-04-27 03:52] LABS: BASOPHILS 0.3 % (0-2); HEMOGLOBIN 10.8 g/dL (13.5-17.5); IMMATURE GRANULOCYTES 0.3 % (0-5); LYMPHOCYTES 19.3 % (15-50); MCH 29.6 pg (26.0-34.0); MCHC 33.8 g/dL (31.0-37.0); MCV 87.7 fL (80.0-100.0); MEAN PLATELET VOLUME 8.7 fL (7.4-10.4); MONOCYTES 12.8 % (2-11); NEUTROPHILS 64.3 % (40-80); PLATELET COUNT 484 10x3/uL (130-400); RBC 3.65 10x6/uL (4.20-6.10); RDW 14.4 % (11.5-14.5); WBC 7.7 10x3/uL (4.8-10.8)
[2018-04-27 04:00] VITALS: BP 121/83
[2018-04-27 04:00] LABS: CALC OSMOLALITY 269 mosm/kg (275-300); CALCIUM 8.3 mg/dL (8.5-10.1); CARBON DIOXIDE 22.6 mmol/L (21.0-32.0); CHLORIDE - SERUM 102 mmol/L (98-107); CREATININE - SERUM 0.9 mg/dL (0.6-1.3); GLUCOSE 115 mg/dL (74-106); POTASSIUM - SERUM 4.1 mmol/L (3.5-5.1); SODIUM 135 mmol/L (136-145); UREA NITROGEN 9 mg/dL (7-18); eGFR NON AFRICAN AMERICAN > 90 mL/min (90-120)
[2018-04-27 08:06] VITALS: BP 120/77
--- NOTE | 2018-04-27 09:30 | NUR ---
TOOK ALL OF AM MEDS WITHOUT DIFFICULTY. ATE ALL OF BREAKFAST. DENIES NEEDS.
[2018-04-27] MEDS ORDERED: FLAGYL500 MG PO (09:43)
[2018-04-27] MEDS ORDERED: PEPCID PO (09:45)
[2018-04-27] MEDS ORDERED: CARAFATE1 G PO (09:46)
[2018-04-27] MEDS ORDERED: ALBUTEROL SULF8.5 GM INH (09:47)
--- NOTE | 2018-04-27 09:52 | NUR ---
Spoke with Janessa Hernandez RN [facility] regarding patient discharge. Patient will need to wear surgical mask till 05/07/2018. [facility] has patient orders and meds. Patient will need to go by HD and pick meds up. Pt is to avoid public contact until after 05/07/18. [facility] would like hospital to give todays dose of TB meds prior to discharge. CM notifed of the above information. Spoke with Uma Morocho RN regarding making sure TB meds given prior to discharge.
--- NOTE | 2018-04-27 10:15 | MORECARE ---
CASE MANAGEMENT DISCHARGE SUMMARY PATIENT: DEMETRIUS GILLESPIE UNIT: [id number] ADM DATE: 04/12/18 AGE: 38 : 78 SEX: M ROOM/BED: D.2201 AUTHOR: TATE,DOC PHYSICIAN: REFERRING PHYSICIAN: GOMEZ VIERA MD DATE OF SERVICE: 04/27/18 Discharge Plan Patient Name: DEMETRIUS GILLESPIE Facility: [facility]:[place] : 1980 Planned Disposition: Home Anticipated Discharge Date: Discharge Date: Expected LOS: Initial Reviewer: [email or web address] Initial Review Date: 04/16/2018 Generated: 04/27/18 11:15 am Comments DCP- Discharge Planning Updated by [email or web address]: Birdie Piper on 04/27/18 9:[address] Patient discharging home today, spoke with Zoey ovalles ID nurse and [facility] to let them know that the patient was being dc today. The [facility] continuous pickling line pickler his medication and follow all instructions. He is to wear a mast till May 07 (a box of mask will be sent home with him) to avoid public places if all possible[phone] They will continue to follow the patient and family. DCP- Discharge Planning Updated by [email or web address]: Birdie Piper on 04/26/18 1:[address] PATIENT DOES NOT QUALIFY/NEED HOME O2 POX WAS 96% ON ROOM AIR AND DURING EXERTION 94% DCP- Discharge Planning Updated by [email or web address]: Helen Bruce on 04/16/18 1:[address] Patient Name: DEMETRIUS GILLESPIE Admission Status: Urgent Accout number: [id number] Admission Date: 04-12-2018 : 1980 Admission Diagnosis: Attending: GOMEZ VIERA Current LOS: 4 Anticipated DC Date: Planned Disposition: Home Primary Insurance: MEDICAID [place] PENDING Discharge Planning Comments: CM met with patient to complete initial dc planning assessment. CM educated patient on the CM role and verbal consent given by patient to complete assessment. Patient lives alone. At discharge patient plans to return home and feels this is a safe discharge. Discussed possibility of home health and DME needs, declines need for medical equipment or home health at this time. I discussed getting a primary care doctor for follow up in [place] and informed him that he does show Medicaid pending and to follow up. CM will continue to follow and assist with discharge planning/needs. Brickmason Apprentice: Helen Galdamezjose DCPIA - Discharge Planning Initial Assessment Updated by [email or web address]: Helen Teo on 04/16/18 2:16 pm * Is the patient Alert and Oriented? Yes * How many steps to enter\exit or inside your home? 3/0 * PCP None * Pharmacy [facility] in [place] * Preadmission Environment Acute Care Facility * Facility Name [facility] in [place] * ADLs Independent * Equipment None * List name and contact numbers for known caregivers / representatives who currently or will assist patient after discharge: Shawnee song - [phone] * Verbal permission to speak to the caregivers and representatives has been obtained from the patient. Yes * Community resources currently utilized None * Additional services required to return to the preadmission environment? No * Can the patient safely return to the preadmission environment? Yes * Has this patient been hospitalized within the prior 30 days at any hospital? No Last DP export: 04/26/18 1:08 p Patient Name: DEMETRIUS GILLESPIE Page [id number] at 1015 All edits/amendments must be made on the electronic document DICTATION DATE: 04/27/18 1014 BANKING ATTORNEY: DELORIS 04/27/18 1014 RPT#: [id number] DC DATE: STATUS: ADM IN [facility] [address] [place] [address] END OF REPORT
[2018-04-27 11:21] LABS: FUNGUS STAIN Final report (())
--- NOTE | 2018-04-27 12:30 | NUR ---
ATE MOST OF LUNCH. DENIES NEEDS. SISTER IS PICKING UP MEDS AT [facility]ALTH DEPARTMENT PRIOR TO COMMING TO GET PATIENT.
[2018-04-27 12:53] VITALS: BP 118/92
--- NOTE | 2018-04-27 15:30 | NUR ---
DISCHARGED TO HOME AMBULATORY WITH FAMILY. DISCHARGE INSTRUCTIONS GIVEN BOTH VERBALLY AND WRITTEN. ALL QUESTIONS ANSWERED. PATIENT AND FAMILY VERBALZIDED UNDERSTANDING OF SAME. SL TO RIGHT HAND D/C WITH CATHETER INTACT. ALL BELONGINGS WITH PATIENT.
[2018-04-27 15:50] VITALS: BP 108/76
--- NOTE | 2018-04-30 10:21 | MORECARE ---
CASE MANAGEMENT DISCHARGE SUMMARY PATIENT: DEMETRIUS GILLESPIE UNIT: [id number] ADM DATE: 04/12/18 AGE: 38 : 78 SEX: M ROOM/BED: D.2201 AUTHOR: BLU YBARRA PHYSICIAN: REFERRING PHYSICIAN: GOMEZ VIERA MD DATE OF SERVICE: 04/30/18 Discharge Plan Patient Name: DEMETRIUS GILLESPIE Facility: [facility]:[place] : 1980 Planned Disposition: Home Anticipated Discharge Date: Discharge Date: 04/27/2018 Expected LOS: 0 Initial Reviewer: [email or web address] Initial Review Date: 04/16/2018 Generated: 04/30/18 11:21 am Comments DCP- Discharge Planning Updated by [email or web address]: Birdie Piper on 04/27/18 9:[address] Patient discharging home today, spoke with Zo[facility] ID nurse and she called the [facility] to let them know that the patient was being dc today. 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 He is to wear a mast till May 07 (a box of mask will be sent home with him) to avoid public places if all possible. [phone] They will continue to follow the patient and family. DCP- Discharge Planning Updated by [email or web address]: Birdie Piper on 04/26/18 1:[address] PATIENT DOES NOT QUALIFY/NEED HOME O2 POX WAS 96% ON ROOM AIR AND DURING EXERTION 94% DCP- Discharge Planning Updated by [email or web address]: Helen Bruce on 04/16/18 1:[address] Patient Name: DEMETRIUS GILLESPIE Admission Status: Urgent Accout number: [id number] Admission Date: 04-12-2018 : 1980 Admission Diagnosis: Attending: GOMEZ VIERA Current LOS: 4 Anticipated DC Date: Planned Disposition: Home Primary Insurance: MEDICAID [place] PENDING Discharge Planning Comments: CM met with patient to complete initial dc planning assessment. CM educated patient on the CM role and verbal consent given by patient to complete assessment. Patient lives alone. At discharge patient plans to return home and feels this is a safe discharge. Discussed possibility of home health and DME needs, declines need for medical equipment or home health at this time. I discussed getting a primary care doctor for follow up in [place] and informed him that he does show Medicaid pending and to follow up. CM will continue to follow and assist with discharge planning/needs. Terrazzo Grinder: Helen Teo DCPIA - Discharge Planning Initial Assessment Updated by [email or web address]: Helen Bruce on 04/16/18 2:16 pm * Is the patient Alert and Oriented? Yes * How many steps to enter\exit or inside your home? 3/0 * PCP None * Pharmacy [facility] in [place] * Preadmission Environment Acute Care Facility * Facility Name [facility] in [place] * ADLs Independent * Equipment None * List name and contact numbers for known caregivers / representatives who currently or will assist patient after discharge: [place] [employer] - [phone] * Verbal permission to speak to the caregivers and representatives has been obtained from the patient. Yes * Community resources currently utilized None * Additional services required to return to the preadmission environment? No * Can the patient safely return to the preadmission environment? Yes * Has this patient been hospitalized within the prior 30 days at any hospital? No Last DP export: 04/27/18 9:15 am Patient Name: DEMETRIUS GILLESPIE Page [id number] at 1021 All edits/amendments must be made on the electronic document DICTATION DATE: 04/30/18 1020 SCRAP SEPARATOR: DELORIS 04/30/18 1020 RPT#: [id number] DC DATE:04/27/18 STATUS: DIS IN [facility] [address] [place] [address] END OF REPORT
== END 2018-04-27 15:55 | disposition home or self-care (01) | DRG 853 ==
LOC: D.MS 13:18
PROVIDERS: Family Medicine; Internal Medicine Gastroenterology; Internal Medicine Pulmonary Disease; Student in an Organized Health Care Education/Training Program; ADMIT Internal Medicine Nephrology; ATTEND Internal Medicine Nephrology
PROC: 0B9G8ZX Drainage of Left Upper Lung Lobe, Via Natural or Artificial Opening Endoscopic, Diagnostic (ICD-10-PCS; 2018-04-17)
PROC: 0BBG8ZX Excision of Left Upper Lung Lobe, Via Natural or Artificial Opening Endoscopic, Diagnostic (ICD-10-PCS; principal; 2018-04-17 13:00)
PROC: 0DB68ZX Excision of Stomach, Via Natural or Artificial Opening Endoscopic, Diagnostic (ICD-10-PCS; 2018-04-19)
DX: A41.9 Sepsis, unspecified organism (principal); J18.9 Pneumonia, unspecified organism; E43 Unspecified severe protein-calorie malnutrition; A15.0 Tuberculosis of lung; J44.1 Chronic obstructive pulmonary disease with (acute) exacerbation; F17.213 Nicotine dependence, cigarettes, with withdrawal; E87.1 Hypo-osmolality and hyponatremia; Z68.1 Body mass index [BMI] 19.9 or less, adult; D62 Acute posthemorrhagic anemia; K92.2 Gastrointestinal hemorrhage, unspecified; D64.9 Anemia, unspecified; K52.9 Noninfective gastroenteritis and colitis, unspecified; J98.4 Other disorders of lung